=== PATIENT | male | born 2000 | race Caucasian/White ===

== ENCOUNTER 2025-04-21 17:47 | Emergency (ER) | payer OTHER ==
[~2025-04-21] VITALS: Ht 170.2 cm; Wt 95.0 kg
[2025-04-21 17:49] VITALS: O2SAT 96
[2025-04-22] MEDS: IBUPROFEN 400MG TABLET PO ONE (01:13)
[2025-04-22] MEDS: HYDROCODONE/ACETAMINOPHEN 5/325MG TABLET PO ONE (01:14)
[2025-04-22] MEDS ORDERED: TOPUD MT (01:53)
[2025-04-22] MEDS ORDERED: IBUP-2028 MT (01:53)
[2025-04-22 02:05] VITALS: BP 132/82; PULSE 92; RESP 16; TEMP 37; O2SAT 97
== END 2025-04-22 02:06 | disposition home or self-care (01) ==
LOC: ER 17:47
DX: S82.142A Displaced bicondylar fracture of left tibia, initial encounter for closed fracture (principal); V43.52XA Car driver injured in collision with other type car in traffic accident, initial encounter; Y92.410 Unspecified street and highway as the place of occurrence of the external cause; Y93.89 Activity, other specified; Y99.8 Other external cause status
CPT/HCPCS: 73552; 73562; 73590; 73700; 99284; Z7610